=== PATIENT | male | born 1955 | race Two or more races ===

== ENCOUNTER 2017-01-19 12:46 | Inpatient (IN) | payer OTHER ==
[~2017-01-19] VITALS: Ht 30.5 cm; Wt 79.4 kg
[2017-01-19 14:35] LABS: Basophils # (auto) 0 uL; Basophils % (auto) 0.2 % (0.0-2.0); CONDITION Y; DEFINITIVE SEE PRINTOUT; Eosinophils # (auto) 0.1 uL; Eosinophils % (auto) 1.2 % (0.0-7.0); Hematocrit 34.7 % (41.0-53.0); Hemoglobin 11.4 g/dL (13.5-17.5); Lymphocytes # (auto) 1.7 uL; Lymphocytes % (auto) 17.1 % (10.0-50.0); Mean Corpuscular Hemoglobin 26.5 pg (28.0-32.0); Mean Corpuscular Hgb Conc. 32.7 g/dL (32.0-36.0); Mean Corpuscular Volume 80.9 fL (80.0-100.0); Mean Platelet Volume 7.9 fL (7.4-10.4); Monocytes # (auto) 0.4 uL; Monocytes % (auto) 3.8 % (0.0-12.0); Neutrophils # (auto) 7.6 uL; Neutrophils % (auto) 77.7 % (37.0-80.0); Platelet Count (auto) 481 10^3/uL (140-450); Red Cell Distribution Width 16.6 % (11.6-16.0); White Blood Cell 9.8 10^3/uL (4.4-10.8)
[2017-01-19 14:45] LABS: INR 0.94 (0.9-1.15); Partial Thromboplastin Time 27.1 sec (22.64-33.71); Prothrombin Time 10.2 sec (9.37-12.3)
[2017-01-19] MEDS ORDERED: SODIUM CHLORIDE 0.9% 1,000 ML IVB ONE (14:46)
[2017-01-19 14:49] LABS: Albumin 3.6 g/dL (3.4-5.0); BUN/Creatinine Ratio 13.8; Calcium 8.8 mg/dL (8.5-10.1)
[2017-01-19 14:51] LABS: Bilirubin, Total 0.1 mg/dL (0.2-1.0); Total Protein 8.2 g/dL (6.4-8.2)
[2017-01-19 14:52] LABS: Urine Bilirubin Negative (Negative); Urine Blood 2+ /uL (Negative); Urine Glucose Normal (Normal); Urine Ketone Negative (Negative); Urine Nitrite Negative (Negative); Urine RBC 7898 /hpf (0 - 3); Urine Urobilinogen Normal (Negative); Urine pH 7.5 (5.0-8.0)
[2017-01-19 15:02] LABS: Urine Color Red (Yellow)
[2017-01-19 15:07] LABS: Amylase 129 U/L (25-115)
[2017-01-19] MEDS ORDERED: MORPHINE SULF INJ 2 MG/ML SYRINGE 1ML IV PRN ×2 (16:30)
[2017-01-19] MEDS ORDERED: ACETAMINOPHEN 325 MG TAB PO PRN (16:30)
[2017-01-19] MEDS ORDERED: NITROGLYCERIN 0.4 MG SL TAB SL PRN (16:30)
[2017-01-19] MEDS ORDERED: ONDANSETRON HCL 4 MG/2 ML VIAL IV PRN (16:30)
[2017-01-19] MEDS ORDERED: BACLOFEN 10 MG TAB PO PRN (16:30)
[2017-01-19] MEDS ORDERED: HYDROcodone-ACET 5/325MG TAB PO PRN (16:30)
[2017-01-19] MEDS ORDERED: TEMAZEPAM 15 MG CAP PO PRN (16:30)
[2017-01-19] MEDS ORDERED: DOCUSATE SOD 100 MG CAP PO PRN (16:30)
[2017-01-19] MEDS ORDERED: ONDANSETRON HCL 4 MG/2 ML VIAL IV ONE (17:00)
[2017-01-19] MEDS ORDERED: MORPHINE SULF INJ 2 MG/ML SYRINGE 1ML IV ONE (17:00)
[2017-01-19] MEDS: SODIUM CHLORIDE 0.9% 1,000 ML IV SCH ×2 (17:06→18:29)
[2017-01-19 18:10] LABS: Hematocrit 33.9 % (41.0-53.0)
[2017-01-19] MEDS: TAMSULOSIN HYDROCHLORIDE 0.4 MG CAP PO SCH (18:31)
[2017-01-19] MEDS: GABAPENTIN 400 MG CAP PO SCH (22:23)
[2017-01-19] MEDS: traZODone HCL 50 MG TAB PO SCH (22:24)
[2017-01-19] MEDS: FAMOTIDINE 20 MG TAB PO SCH (22:24)
[2017-01-19] MEDS: HYDROmorphone HCL 2 MG/ML VL IV PRN (22:24)
[2017-01-19 22:59] VITALS: BP 124/84
[2017-01-19 22:59] LABS: Hemoglobin 10.2 g/dL (13.5-17.5)
[2017-01-20] MEDS ORDERED: HYDROmorphone HCL 2 MG/ML VL IV ONE (02:00)
[2017-01-20 05:25] VITALS: BP 136/95
[2017-01-20 06:58] LABS: Basophils # (auto) 0 uL; Basophils % (auto) 0.3 % (0.0-2.0); CONDITION Y; DEFINITIVE SEE PRINTOUT; Eosinophils # (auto) 0.1 uL; Hematocrit 28.8 % (41.0-53.0); Hemoglobin 9.4 g/dL (13.5-17.5); Lymphocytes # (auto) 2.9 uL; Lymphocytes % (auto) 34.9 % (10.0-50.0); Mean Corpuscular Hemoglobin 26.3 pg (28.0-32.0); Mean Corpuscular Hgb Conc. 32.8 g/dL (32.0-36.0); Mean Corpuscular Volume 80.3 fL (80.0-100.0); Mean Platelet Volume 7.7 fL (7.4-10.4); Monocytes # (auto) 0.6 uL; Monocytes % (auto) 6.8 % (0.0-12.0); Neutrophils # (auto) 4.7 uL; Platelet Count (auto) 421 10^3/uL (140-450); Red Cell Distribution Width 16.8 % (11.6-16.0); White Blood Cell 8.2 10^3/uL (4.4-10.8)
[2017-01-20 07:41] LABS: Albumin 3.1 g/dL (3.4-5.0); BUN/Creatinine Ratio 15.4; Bilirubin, Total 0.2 mg/dL (0.2-1.0); Calcium 8.5 mg/dL (8.5-10.1); Potassium 3.7 mmol/L (3.5-5.1)
[2017-01-20] MEDS: SODIUM CHLORIDE 0.9% 1,000 ML IV SCH (09:09)
[2017-01-20 09:56] VITALS: BP 148/74
[2017-01-20] MEDS: MELOXICAM PO SCH (10:00)
[2017-01-20] MEDS: FAMOTIDINE 20 MG TAB PO SCH ×2 (10:17→21:35)
[2017-01-20] MEDS: PANTOPRAZOLE 40 MG TAB PO SCH (10:17)
[2017-01-20] MEDS: GABAPENTIN 400 MG CAP PO SCH ×2 (10:17→21:34)
[2017-01-20] MEDS: MULTIPLE VITAMIN TAB PO SCH (10:17)
[2017-01-20] MEDS: BUMETANIDE 1 MG TAB PO SCH (10:18)
[2017-01-20] MEDS: METOPROLOL SUCCINATE XL 50 MG TAB PO SCH (10:18)
[2017-01-20] MEDS: SERTRALINE HCL 50 MG TAB PO SCH (10:19)
[2017-01-20] MEDS: BOOST PLUS 8 ounce PO SCH ×2 (12:00→17:46)
[2017-01-20 12:21] LABS: Hematocrit 29.8 % (41.0-53.0); Hemoglobin 9.9 g/dL (13.5-17.5)
[2017-01-20 12:59] VITALS: BP 144/101
[2017-01-20] MEDS: TAMSULOSIN HYDROCHLORIDE 0.4 MG CAP PO SCH (17:46)
[2017-01-20 18:12] VITALS: BP 138/85
[2017-01-20] MEDS: HYDROmorphone HCL 2 MG/ML VL IV PRN (19:36)
[2017-01-20 20:00] VITALS: BP 135/90
[2017-01-20 20:09] LABS: Hematocrit 31.5 % (41.0-53.0); Hemoglobin 10.2 g/dL (13.5-17.5)
[2017-01-20] MEDS: traZODone HCL 50 MG TAB PO SCH (21:34)
[2017-01-20 22:42] VITALS: BP 135/90
[2017-01-21] MEDS: SODIUM CHLORIDE 0.9% 1,000 ML IV SCH (01:49)
[2017-01-21 05:06] VITALS: BP 129/82
[2017-01-21 05:40] LABS: Albumin 3.2 g/dL (3.4-5.0); BUN/Creatinine Ratio 15.2; Calcium 8.8 mg/dL (8.5-10.1); Potassium 3.9 mmol/L (3.5-5.1)
[2017-01-21 05:41] LABS: Basophils # (auto) 0 uL; Basophils % (auto) 0.3 % (0.0-2.0); CONDITION Y; DEFINITIVE SEE PRINTOUT; Eosinophils # (auto) 0.1 uL; Eosinophils % (auto) 2.2 % (0.0-7.0); Hematocrit 30.6 % (41.0-53.0); Lymphocytes # (auto) 2.3 uL; Lymphocytes % (auto) 37.7 % (10.0-50.0); Mean Corpuscular Hemoglobin 26.4 pg (28.0-32.0); Mean Corpuscular Hgb Conc. 32.7 g/dL (32.0-36.0); Mean Corpuscular Volume 80.6 fL (80.0-100.0); Mean Platelet Volume 7.9 fL (7.4-10.4); Monocytes # (auto) 0.5 uL; Monocytes % (auto) 7.5 % (0.0-12.0); Neutrophils # (auto) 3.2 uL; Neutrophils % (auto) 52.3 % (37.0-80.0); Platelet Count (auto) 488 10^3/uL (140-450); Red Cell Distribution Width 16.5 % (11.6-16.0); White Blood Cell 6.2 10^3/uL (4.4-10.8)
[2017-01-21 05:42] LABS: Bilirubin, Total 0.1 mg/dL (0.2-1.0); Total Protein 7.5 g/dL (6.4-8.2)
[2017-01-21] MEDS ORDERED: ceFAZolin 1GM/50ML D5W 50 ML IV ONE ×2 (07:03)
[2017-01-21] MEDS ORDERED: PROPOFOL 10 MG/ML 20 ML IV ONE (07:26)
[2017-01-21] MEDS ORDERED: fentaNYL CITRATE 100 MCG/2 ML VL ONE (07:26)
[2017-01-21 08:00] VITALS: BP 129/82
[2017-01-21] MEDS: BOOST PLUS 8 ounce PO SCH ×2 (08:00→12:00)
[2017-01-21] MEDS ORDERED: ONDANSETRON HCL 4 MG/2 ML VIAL IV ONE (08:15)
[2017-01-21] MEDS ORDERED: MORPHINE SULF INJ 2 MG/ML SYRINGE 1ML IV PRN (08:15)
[2017-01-21] MEDS ORDERED: ePHEDrine SULFATE 50 MG/ML AMP IV PRN (08:15)
[2017-01-21] MEDS ORDERED: hydrALAZINE HCL 20 MG/ML VL IV PRN (08:15)
[2017-01-21 09:00] VITALS: BP 143/90
[2017-01-21] MEDS: PANTOPRAZOLE 40 MG TAB PO SCH (09:52)
[2017-01-21] MEDS: FAMOTIDINE 20 MG TAB PO SCH (09:52)
[2017-01-21] MEDS: MULTIPLE VITAMIN TAB PO SCH (09:52)
[2017-01-21] MEDS: SERTRALINE HCL 50 MG TAB PO SCH (09:53)
[2017-01-21] MEDS: GABAPENTIN 400 MG CAP PO SCH (09:53)
[2017-01-21] MEDS: BUMETANIDE 1 MG TAB PO SCH (09:53)
[2017-01-21] MEDS: METOPROLOL SUCCINATE XL 50 MG TAB PO SCH (09:54)
[2017-01-21] MEDS: MELOXICAM PO SCH (09:56)
[2017-01-21 12:59] VITALS: BP 137/71
[2017-01-21 14:57] VITALS: BP 137/71
== END 2017-01-21 15:30 | disposition home or self-care (01) | DRG 699 ==
LOC: ER 12:46 → TELE 12:47 → TELE-WESTW 21:54
PROVIDERS: ADMIT Internal Medicine; ATTEND Internal Medicine
PROC: 0T7D8ZZ Dilation of Urethra, Via Natural or Artificial Opening Endoscopic (ICD-10-PCS; 2017-01-21)
PROC: 0TCB8ZZ Extirpation of Matter from Bladder, Via Natural or Artificial Opening Endoscopic (ICD-10-PCS; principal; 2017-01-21 07:26)
DX: N30.41 Irradiation cystitis with hematuria (principal); K62.5 Hemorrhage of anus and rectum; S37.22XA Contusion of bladder, initial encounter; K76.0 Fatty (change of) liver, not elsewhere classified; N32.89 Other specified disorders of bladder; N35.9 Urethral stricture, unspecified; D63.8 Anemia in other chronic diseases classified elsewhere; I10 Essential (primary) hypertension; K21.9 Gastro-esophageal reflux disease without esophagitis; F32.9 Major depressive disorder, single episode, unspecified; I25.10 Atherosclerotic heart disease of native coronary artery without angina pectoris; D75.89 Other specified diseases of blood and blood-forming organs; F17.210 Nicotine dependence, cigarettes, uncomplicated; G89.29 Other chronic pain; Z85.46 Personal history of malignant neoplasm of prostate; Z82.49 Family history of ischemic heart disease and other diseases of the circulatory system; Z92.3 Personal history of irradiation
CPT/HCPCS: 36415; 71020; 74176; 76856; 80053; 81001; 82150; 83605; 83690; 85014; 85018; 85025; 85610; 85730; 88302; 93005; 94761; 96374; J0690; J2405; J2704